=== PATIENT | male | born 1985 | race Caucasian/White ===

== ENCOUNTER 2018-12-22 23:09 | Emergency (ER) | payer SELFPAY | END 2018-12-22 23:18 | disposition left against medical advice (07) | LOC: E/R 23:09 | DX: Z53.21 Procedure and treatment not carried out due to patient leaving prior to being seen by health care provider (principal) ==

== ENCOUNTER 2019-02-01 01:41 | Emergency (ER) | payer OTHER ==
[~2019-02-01] VITALS: Ht 180.3 cm; Wt 79.2 kg
[~2019-02-01 01:41] MED LIST: ONDA4TAB8 PO
[2019-02-01 01:43] VITALS: Ht 180.3 cm; Wt 79.2 kg
[2019-02-01] MEDS ORDERED: ONDANSETRON 4 MG INJ IM STA (03:53)
[2019-02-01 04:44] VITALS: BP 107/65; PULSE 54; RESP 15
== END 2019-02-01 04:45 | disposition home or self-care (01) ==
LOC: E/R 01:41
DX: R11.2 Nausea with vomiting, unspecified (principal); Z76.0 Encounter for issue of repeat prescription
CPT/HCPCS: 96372; J2405; Z7502